=== PATIENT | male | born 1935 | race Caucasian/White ===

== ENCOUNTER 2016-11-05 14:29 | Inpatient (IN) | payer OTHER ==
[~2016-11-05] VITALS: Ht 170.2 cm; Wt 56.7 kg
[2016-11-05] VITALS (27 sets, daily range): BP systolic 64–117; BP diastolic 35–59
--- NOTE | ~2016-11-05 | HC ---
[facility] [place] [address] CONSULTATION Name: BRAYDON Cueto Joselin Room #: 245-P [facility] IN M.R.#: [id number] Admission: 11/05/16 Attend Phys: Jeffy Garsia MD Discharge: 11/07/16 Date of : 37 Report #: [id number] THIS REPORT FOR: //name// CC: Abelardo Garsia MD DATE OF SERVICE: 11/05/2016 REFERRING PROVIDER: Jeffy Garsia MD REASON FOR CONSULTATION: Hypoxemia. HISTORY OF PRESENT ILLNESS: Our group was asked to see the patient in consultation while hospitalized at [facility] in the ICU. Discussed with ____ in the Emergency Department. The patient is an 81-year-old male previously been on hospice due to end-stage kidney disease and underlying cardiac disease; however, has had altered mental status the last 2 days, been feeling poorly. No other noted symptoms. No cough, congestion or wheezing. The patient is not a good historian, is alert and denies any discomfort anywhere or shortness of breath. In the Emergency Department, was noted to have some hypoxemia requiring high-flow supplemental oxygen, also noted to have worsening renal failure with hyperkalemia as well as findings of urinary tract infection and subsequently admitted for further management. Of note, the patient has a history of pulmonary embolism 2 years ago, had an IVC filter placed at that time due to GI bleed from gastric ulcers, not anticoagulated at this time and as best we can tell the IVC filter remains in place. ALLERGIES: None known. PAST MEDICAL HISTORY: 1. History of chronic kidney insufficiency. 2. History of bioprosthetic aortic valve replacement. 3. History of coronary artery bypass grafting. 4. Hypertension. 5. Diabetes mellitus. 6. Dementia. OUTPATIENT MEDICATIONS: Include aspirin, garlic, multivitamin, vitamin E, p.r.n. albuterol, Advair, Spiriva, lisinopril, Dulcolax, metoprolol and morphine. SOCIAL HISTORY: Unobtainable from the patient at this time. [facility] [address] [place] [address] CONSULTATION Name: BRAYDON PALAFOX Room #: 245-P [facility] IN ..#: [id number] Admission: 11/05/16 Attend Phys: Jeffy Garsia MD Discharge: 11/07/16 Date of : 37 Report #: [id number] FAMILY HISTORY: Unobtainable from the patient. REVIEW OF SYSTEMS: Otherwise, unobtainable at this time, except for the patient does deny any significant pain, cough, congestion, nausea, vomiting or abdominal pain when queried. PHYSICAL EXAMINATION: VITAL SIGNS: Afebrile, pulse 80s, respiratory rate 20, blood pressure 91/56, oxygen saturation 92% on nonrebreather mask. GENERAL: This is a pleasant elderly male, in no distress. ENT: Clear oropharynx. NECK: Supple, no lymphadenopathy. LUNGS: Relatively clear. No wheezes or crackles. CARDIOVASCULAR: Heart regular. No murmurs appreciated. ABDOMEN: Soft, nontender, no masses, no hepatosplenomegaly. There is mild distention. EXTREMITIES: Warm with no significant edema. LABORATORY DATA: White blood cell count 15,000; hemoglobin 15; hematocrit 45; platelet count 450. Sodium 127, potassium 6.6, chloride 95, bicarbonate 17, BUN 90, creatinine 3.9, glucose 136. Arterial blood gas done on nonrebreather mask revealed pH 7.32, pCO2 of 34, pO2 of 59, bicarbonate of 17. Urinalysis revealed 3+ blood with significant pyuria. Cultures are pending. IMPRESSION: 1. Acute hypoxemic respiratory failure. We would be concerned about pulmonary embolism in this patient who has a non-anticoagulated IVC filter for the past 2 years. This would be my gravest concern. Anticoagulation should be considered; however, use of heparin GTT has a significant amount of potassium associated with it. We will consider a single dose of enoxaparin 1 mg/kg if no significant bleeding risk identified otherwise. The patient does have some findings of mild hematuria but a hemoglobin of 15, consider single-dose enoxaparin while awaiting further studies. 2. Urinary tract infection with probably early sepsis. 3. Liedx-mk-rtshcoc renal failure. 4. Hyperkalemia. 5. Hyponatremia. 6. Dementia. SUGGESTIONS: 1. Continue with antibiotics; we will continue with Zosyn renal dose. 2. Consider 60 mg enoxaparin 1 time subQ now. 3. Nephrology consultation. 4. The patient appears to be dry on chest radiograph and exam. The patient should continue to receive fluid challenges. 5. Consider central venous catheter after attempting good second peripheral IV. [address] [address] CONSULTATION Name: BRAYDON PALAFOX Room #: 245-P [facility] IN M.R.#: [id number] Admission: 11/05/16 Attend Phys: Jeffy Garsia MD Discharge: 11/07/16 Date of : 37 Report #: [id number] The patient is on IV access at this time. 6. Await cultures. 7. Ventilation perfusion scan. 8. Lower extremity venous Doppler. 9. Echocardiogram. 10. ICU care. 11. Further recommendations to follow. Thank you for requesting our suggestions. Total critical care time 40 minutes, not including any procedures to this point. <ELECTRONICALLY SIGNED> By: Bjorn Mitchell MD 11/07/16 1434 [id number] Bjorn Mitchell MD /nt
--- NOTE | ~2016-11-05 | HC ---
[facility] [place] [address] CONSULTATION Name: NoryBRAYDON G Room #: 245-P ADM IN M.R.#: [id number] Admission: 11/05/16 Attend Phys: Jeffy Garsia MD Discharge: Date of : 37 Report #: [id number] THIS REPORT FOR: //name// CC: Abelardo Garsia DATE OF SERVICE: 11/05/2016 RENAL CONSULTATION REASON FOR CONSULTATION: Acute kidney injury. HISTORY OF PRESENT ILLNESS: This 81-year-old male has known chronic dementia and has been on hospice status for several months. He has known chronic kidney disease, diabetes mellitus and hypertension. This situation deteriorated and his son wished is father to have medical attention. He was brought to the emergency room, where he was found to have hyperkalemia, acute kidney injury and hypotension and was admitted to the intensive care unit. I saw the patient this evening and discussed at length with the patient's son appropriate management given his significant multisystem compromise and recent hospice status. The son is unsure of the correct action. I assured him that the patient's difficulties were multisystem in nature and not likely to recover even with aggressive medical measures. I recommended that comfort measures be pursued and the patient's son agreed with this plan. We will discontinue all aggressive management, including laboratory studies, V/Q scan, Doppler studies, etc. I have ordered Ativan and morphine for patient comfort. Please see orders. <ELECTRONICALLY SIGNED> By: Jan Lozano MD 11/07/16 0647 [id number] 1155 Jan Lozano MD /nt
--- NOTE | ~2016-11-05 | EKG ---
[address] [facility] [place] [address] ELECTROCARDIOGRAM REPORT Name: BRAYDON PALAFOX Room #: 245- ADM IN M.R.#: [id number] Admission: 11/05/16 Attend Phys: Jeffy Garsia MD Discharge: Date of : 37 Report #: [id number] THIS REPORT FOR: //name// [facility] ED Test Date: 2016-11-05 Test Time: 14:39:08 Pat Name: BRAYDON PALAFOX Department: Room: 245 Gender: M Journeyman [employer]: AMBER : [id number] Requested By: Jeffy Garsia Order Number: [id number] MD: Andres Pisano Measurements Intervals [place] Rate: 86 P: 60 VA: 180 QRS: -68 QRSD: 118 T: 82 QT: 356 QTc: 426 Interpretive Statements Sinus rhythm Incomplete right bundle branch block Inferior infarct, old No previous ECG available for comparison Electronically Signed On 11-06-2016 9:09:45 CDT by Andres Pisano [email or web address] <ELECTRONICALLY SIGNED> By: Andres Pisano MD, [facility] 11/06/16 0909 1439 1439 Andres Pisano MD, FACC /EPI
[~2016-11-05 14:29] MED LIST: ADVAIR HFA 230M12 GM INH; AMARYL4 MG PO; ASPIR 8181 MG PO; CARAFATE 1 GM TA1 G1 PO; CARDURA XL4 MG PO; CIALIS20 MG PO; COLACE100 MG PO; GARLIC OIL1 EACH PO; HYDROCODONE-AP1 EAC6 PO; LASIX 40 MG TAB40 M2 PO; LISINOPRIL10 MG PO; METFORMIN HCL500 MG PO; NAPROSYN500 MG PO; POTASSIUM20 PO; PRAVACHOL40 MG PO; PROSCAR 5MG TABL5 MG PO; PROTONIX40 M1 PO; SPIRIVA INH; TOPROL XL50 MG PO; UNICOMPLEX M TA1 TA1 PO; VENTOLIN HFA 1818 GM INH; VITAMIN E400 UNIT PO
[2016-11-05 15:10] LABS: HEMATOCRIT 44.7 % (42.0-52.0); HEMOGLOBIN 14.7 gm/dL (14.0-18.0); MCH 29.1 pg (26.0-34.0); MCV 88.1 fL (80.0-100.0); PLATELET COUNT 450 thou/uL (150-400); RBC 5.07 mil/uL (4.50-6.00); RDW 17.1 % (10.5-14.5); WBC 14.7 thou/uL (4.0-11.0)
[2016-11-05 15:12] LABS: MANUAL DIFF YES
[2016-11-05 15:27] LABS: ABG SAMPLE TYPE ARTERIAL; BE(vivo) -8.1 mmol/L (-2 to +3); LACTATE 1.76 mmol/L (0.5-2.0); O2(CT) 17.8 mL/dL (15.0-23.0); O2Hb 86.3 % (92.0-98.0); PCO2 33.9 mmHg (35.0-45.0); PO2 58.5 mmHg (80.0-100.0); pH 7.318 (7.360-7.450); sO2 88.5 % (92.0-98.0)
[2016-11-05 15:28] LABS: ALBUMIN 2.9 g/dL (3.4-5.0); ALKALINE PHOSPHATASE 80 U/L (46-116); ANION GAP 15 mmol/L (7-16); BUN 90 mg/dL (7-18); CALCIUM 9.4 mg/dL (8.5-10.1); CHLORIDE 95 mmol/L (98-107); CO2 17 mmol/L (21-32); CREATININE 3.9 mg/dL (0.6-1.3); DIRECT BILIRUBIN 0.1 mg/dL (<0.1-0.3); GLUCOSE 136 mg/dL (70-99); NT-PRO BRAIN NAT PEPTIDE 8784 pg/mL (<300); SGOT 23 U/L (15-37); SGPT 9 U/L (30-65); TOTAL BILIRUBIN 0.5 mg/dL (<0.1-1.0); TOTAL PROTEIN 7.7 g/dL (6.4-8.2); TROPONIN-I < 0.04 ng/mL (<0.04-0.07)
[2016-11-05 15:28] LABS: STICK SITE R.BRACHIAL
[2016-11-05 15:29] LABS: VDS 15LPM NONREBREATHER cc
[2016-11-05 15:34] LABS: POTASSIUM 6.6 mmol/L (3.5-5.1); SODIUM 127 mmol/L (136-145)
[2016-11-05 15:46] LABS: ABSOLUTE NEUTROPHILS 12.3 thou/uL (1.4-8.2); ANISOCYTOSIS SLIGHT; OVALOCYTES OCCASIONAL; POIKILOCYTOSIS SLIGHT; TOTAL CELL COUNT 100
[2016-11-05 16:12] LABS: URINE BLOOD 3+ (Negative); URINE COLOR YELLOW; URINE GLUCOSE-RANDOM* NEGATIVE (Negative); URINE KETONES TRACE (Negative); URINE LEUKOCYTES-REFLEX 2+ (Negative); URINE PROTEIN (DIPSTICK) 2+ (Negative); URINE SPECIFIC GRAVITY 1.025 (1.003-1.035); URINE UROBILINOGEN 0.2 E.U./dl (0.2-1.0)
[2016-11-05 16:19] LABS: URINE BILIRUBIN NEGATIVE (Negative)
[2016-11-05 16:23] LABS: SQUAMOUS 0-3 Few /LPF (0-3); URINE WBC-REFLEX >25 Many /HPF (0-5)
[2016-11-05 16:24] LABS: HYALINE CASTS 0-3 Few /LPF (None Seen)
[2016-11-05] MEDS ORDERED: LISINOPRIL2.5 MG PO (17:00)
[2016-11-05] MEDS ORDERED: DULCOLAX5 MG PO (17:01)
[2016-11-05] MEDS ORDERED: LOPRESSOR25 PO (17:02)
[2016-11-05] MEDS ORDERED: SENNA-DOCUSATE1 EAC1 PO (17:04)
[2016-11-05] MEDS ORDERED: MORPHINE SULFAT30 M4 PO (17:09)
[2016-11-05 20:29] LABS: CALCIUM 9.1 mg/dL (8.5-10.1); CREATININE 3.7 mg/dL (0.6-1.3); POTASSIUM 5.8 mmol/L (3.5-5.1)
[2016-11-06] VITALS (21 sets, daily range): BP systolic 60–92; BP diastolic 34–45
[2016-11-07 07:36] VITALS: BP 124/66
[2016-11-07 07:37] VITALS: BP 124/66
[2016-11-07 12:30] VITALS: BP 92/45
== END 2016-11-07 12:45 | disposition hospice, home (50) | DRG 871 ==
LOC: ER 14:29 → ICU 17:36 → EROBS 17:36 → ICU 18:27
PROVIDERS: Emergency Medicine; Family Medicine
DX: A41.9 Sepsis, unspecified organism (principal); R65.21 Severe sepsis with septic shock; N17.0 Acute kidney failure with tubular necrosis; J96.21 Acute and chronic respiratory failure with hypoxia; G93.41 Metabolic encephalopathy; N39.0 Urinary tract infection, site not specified; E87.1 Hypo-osmolality and hyponatremia; E11.22 Type 2 diabetes mellitus with diabetic chronic kidney disease; N18.9 Chronic kidney disease, unspecified; Z98.42 Cataract extraction status, left eye; Z98.41 Cataract extraction status, right eye; Z95.2 Presence of prosthetic heart valve; Z95.1 Presence of aortocoronary bypass graft; F03.90 Unspecified dementia, unspecified severity, without behavioral disturbance, psychotic disturbance, mood disturbance, and anxiety; E87.5 Hyperkalemia; I25.10 Atherosclerotic heart disease of native coronary artery without angina pectoris; Z87.891 Personal history of nicotine dependence; E86.0 Dehydration; I12.9 Hypertensive chronic kidney disease with stage 1 through stage 4 chronic kidney disease, or unspecified chronic kidney disease; Z66 Do not resuscitate; Z51.5 Encounter for palliative care
CPT/HCPCS: 10078